=== PATIENT | female | born 1955 | race Caucasian/White ===

== ENCOUNTER → 2016-12-20 | Outpatient (CLI) | payer BC | LOC: FIMAGING 16:21 | PROVIDERS: ATTEND Family Medicine | DX: Z12.31 Encounter for screening mammogram for malignant neoplasm of breast (principal) | CPT/HCPCS: G0202 ==

== ENCOUNTER 2019-02-03 22:02 | Observation (INO) | payer BC ==
--- NOTE | 2019-02-03 22:44 | EDPHY ---
H & P Stated Complaint: Dx w/bronchitis monday, cough, not sleeping, "getting worse" Time Seen by Provider: 02/03/19 22:44 HPI/ROS: HPI CHIEF COMPLAINT: Worsening cough. HISTORY OF PRESENT ILLNESS: 64-year-old female, otherwise healthy presents emergency room stating her cough is getting worse and that she is unable to sleep for the past 3 days. She reports to me that she flew back from [place] on Monday of last week. She started getting sick on Monday with cough, she went saw primary care doctor was diagnosed bronchitis she was given Sudafed, cough medicine with codeine, albuterol inhaler. However she reports she has been unable to sleep for the past 3 days. States her cough is keeping her up. Past Medical History: Denies significant medical history Past Surgical History: Denies significant recent surgical history Social History: Denies drugs alcohol tobacco. Family History: Noncontributory ROS REVIEW OF SYSTEMS: 10 Systems were reviewed and negative with the exception of the elements mentioned in the history of present illness. Exam Constitutional nontoxic no acute distress triage nursing summary reviewed, vital signs reviewed, awake/alert. Vital signs stable. Eyes normal conjunctivae and sclera, EOMI, PERRLA. HENT normal inspection, atraumatic, moist mucus membranes, no epistaxis, neck supple/ no meningismus, no raccoon eyes. Respiratory bronchitic sounding cough on exam, clear to auscultation bilaterally, normal breath sounds, no respiratory distress. Cardiovascular rate normal, regular rhythm, no murmur, no edema, distal pulses normal. Gastrointestinal soft, non-tender, no rebound, no guarding, normal bowel sounds, no distension, no pulsatile mass. Genitourinary no CVA tenderness. Musculoskeletal no midline vertebral tenderness, full range of motion, no calf swelling, no tenderness of extremities, no meningismus, good pulses, neurovascularly intact. Skin pink, warm, & dry, no rash, skin atraumatic. Neurologic awake, alert and oriented x 3, AAOx3, moves all 4 extremities equally, motor intact, sensory intact, CN II-XII intact, normal cerebellar, normal vision, normal speech. Psychiatric normal mood/affect. Heme/Lymph/Immune no lymphadenopathy. Differential Diagnosis: Includes but is not limited to in a particular order bronchitis, viral syndrome, URI, viral pneumonia, bacterial pneumonia Medical Decision Making: Plan for this patient IV establishment IV fluid bolus , DuoNeb breathing treatment, two view chest x-ray, basic labs re-evaluate. Re-evaluation: 12:01 a.m. D-dimer is positive in the setting that she flew from she PN and short of breath. Plan for CT angiogram of the chest. I discussed the results of her lab work with her and discussed that given she has a positive D-dimer, shortness of breath, cough, recent long flight plan will be for CT angiogram of the chest she is agreeable this plan. CT angiogram of the chest obtained due to positive D-dimer and cough and shortness of breath. This shows no PE. However this does show patchy areas of poorly defined nodular ground-glass opacification lower lungs bilaterally with more consolidation anterior inferior left lower lobe and lingula. Consistent with multifocal pneumonia. Blood cultures will be obtained IV antibiotics be given IV Rocephin and IV Azithro Patient be admitted the hospitalist service. 0215AM: patient agrees for admission Dr. Edmondson Consulted. Source: Patient - Personal History Current Tetanus Diphtheria and Acellular Pertussis (TDAP): Yes - Medical/Surgical History Hx Asthma: No Hx Chronic Respiratory Disease: No Hx Diabetes: No Hx Cardiac Disease: No Hx Renal Disease: No Hx Cirrhosis: No Hx Alcoholism: No Hx HIV/AIDS: No Hx Splenectomy or Spleen Trauma: No Other PMH: Lt ACL - Social History Smoking Status: Never smoked Constitutional: Initial Vital Signs Temperature (C) 37.1 C 02/03/19 22:08 Heart Rate 70 02/03/19 22:08 Respiratory Rate 19 02/03/19 22:08 Blood Pressure 109/56 L 02/03/19 22:08 O2 Sat (%) 93 02/03/19 22:08 O2 Delivery Mode Room Air Allergies/Adverse Reactions: No Known Allergies Allergy (Unverified 02/03/19 22:11) Home Medications: Medication Instructions Recorded Acetaminophen [Tylenol 325mg (*)] 650 mg PO Q4HRS PRN tab 02/04/19 Albuterol [Ventolin Hfa Inhaler] 2 puffs IH Q4 PRN 02/04/19 Amoxicillin/Clavulanate Pot 875 mg PO BID #10 tab 02/04/19 [Augmentin 875 MG TAB (*)] Ascorbic Acid [Vitamin C 500 mg 1,000 mg PO DAILY 02/04/19 (*)] Aspirin [Aspirin 325 mg (*)] 650 mg PO Q6 PRN 02/04/19 Azithromycin [Zithromax] 250 mg PO DAILY #4 tab 02/04/19 Cholecalciferol Vit D3 [Vitamin D3 2,000 units PO DAILY 02/04/19 2000 units tab (OTC)] Ibuprofen [Motrin (*)] 400 mg PO Q4HRS PRN tab 02/04/19 Pseudoephedrine HCl 120 mg PO DAILY PRN 02/04/19 [Pseudoephedrine ER] Triamcinolone Acetonide [Nasacort] 1 spray EACHNARE DAILY PRN 02/04/19 Medical Decision Making - Data Points Laboratory Results: Laboratory Results 02/03/19 23:15 02/03/19 23:15 Microbiology Results: MICROBIOLOGY 02/04/19 00:52 Nasal, Sinus - Swab Respiratory Panel (PCR) - Final No Organism Detected By Pcr Medications Given: Discontinued Medications Hydrocodone Bitart/Acetaminophen (Secretary 10/325) 1 tab PO EDNOW ONE Stop: 02/03/19 23:52 Last Admin: 02/04/19 00:09 Dose: Not Given Hydrocodone Bitart/Acetaminophen (Secretary 5/325) 2 tab PO EDNOW ONE Stop: 02/04/19 00:10 Last Admin: 02/04/19 00:26 Dose: 2 tab Albuterol/Ipratropium (Duoneb) 3 ml IH EDNOW ONE Stop: 02/03/19 22:58 Last Admin: 02/03/19 23:17 Dose: 3 ml Guaifenesin/Codeine Phosphate (Robitussin Ac) 10 ml PO Q6HRS PRN PRN Reason: Cough, Moderate Stop: 08/03/19 02:46 Last Admin: 02/04/19 12:04 Dose: 10 ml Sodium Chloride (Ns) 1,000 mls @ 0 mls/hr IV ONCE ONE; Wide Open PRN Reason: Protocol Stop: 02/03/19 22:58 Last Admin: 02/03/19 23:13 Dose: 1,000 mls Sodium Chloride (Ns) 1,000 mls @ 0 mls/hr IV ONCE ONE PRN Reason: Wide Open Stop: 02/03/19 23:33 Last Admin: 02/03/19 23:43 Dose: 1,000 mls Azithromycin 500 mg/ Sodium (Chloride) 255 mls @ 255 mls/hr IV EDNOW ONE PRN Reason: Protocol Stop: 02/04/19 03:00 Last Admin: 02/04/19 03:51 Dose: 255 mls Ceftriaxone Sodium 2 gm/ (Sodium Chloride) 50 mls @ 100 mls/hr IV EDNOW ONE PRN Reason: Protocol Stop: 02/04/19 02:30 Last Admin: 02/04/19 02:55 Dose: 50 mls Prednisone (Prednisone) 60 mg PO EDNOW ONE Stop: 02/03/19 23:52 Last Admin: 02/04/19 00:26 Dose: 60 mg Departure - Departure Disposition: [facility] Inpatient Acute Clinical Impression: Pneumonia Qualifiers: Pneumonia type: due to unspecified organism Laterality: bilateral Lung location : unspecified part of lung Qualified Code(s): J18.9 - Pneumonia, unspecified organism Condition: Good
[2019-02-03] MEDS ORDERED: NS 1,000 ML IV ONE ×2 (22:57→23:32)
[2019-02-03] MEDS ORDERED: IPRATROPIUM/ALBUTEROL 3 ML DEYVIAL IH ONE (22:57)
[2019-02-03 23:25] LABS: PLATELET COUNT 172 10^3/uL (150-400)
[2019-02-03] MEDS ORDERED: HYDROCODONE/APAP 10/325 TAB PO ONE (23:51)
[2019-02-03] MEDS ORDERED: predniSONE 20 MG TAB PO ONE (23:51)
[2019-02-04] MEDS ORDERED: HYDROCODONE/APAP 5/325 TAB PO ONE (00:09)
[2019-02-04] MEDS ORDERED: IOPAMIDOL (ISOVUE 370) 100 ML BTL IV ONE (00:17)
[2019-02-04] MEDS ORDERED: AZITHROMYCIN IV 500 MG in NS 250 ML IV ONE (02:01)
[2019-02-04] MEDS ORDERED: ONDANSETRON 4 MG/2 ML VIAL IVP PRN (02:44)
[2019-02-04] MEDS ORDERED: HYDROCODONE/APAP 5/325 TAB PO PRN (02:44)
[2019-02-04] MEDS ORDERED: ACETAMINOPHEN 325 MG TAB PO PRN (02:44)
[2019-02-04] MEDS ORDERED: LORazepam 0.5 MG TAB PO PRN (02:44)
[2019-02-04] MEDS ORDERED: IBUPROFEN 200 MG TAB PO PRN (02:44)
[2019-02-04] MEDS ORDERED: ONDANSETRON DISINTEGRATING 4 MG TAB PO PRN (02:44)
[2019-02-04] MEDS ORDERED: NS 1,000 ML IV SCH (02:45)
[2019-02-04] MEDS ORDERED: BENZONATATE 100 MG CAP PO PRN (06:10)
[2019-02-04] MEDS: guaiFENesin/CODEINE PHOS 10 ML UDCUP PO PRN ×2 (06:12→12:04)
--- NOTE | 2019-02-04 06:55 | GHP ---
[f rep st] HISTORY AND PHYSICAL DATE OF ADMISSION: 02/04/2019 SOURCE: Patient provides history, appears reliable. EMR was reviewed and case discussed with ED pro vider. CHIEF COMPLAINT: Cough and shortness of breath. HISTORY OF PRESENT ILLNESS: Very pleasant 64-year-old female who is otherwise healthy presents to [facility] emergency department today with complaints of a 5-day history of progressive cough and dyspnea. [facility] patient recently returned from a trip from [facility]. She reports that she developed some coughing typ e symptoms that were persistent. It is a nonproductive cough. She did initially have some complaints of fevers and chills. She had no known direct sick contacts but she states that [place] She was seen by her primary care provider and diagnosed with bronchitis. She was given alb uterol inhaler and taking [id number]. The patient with progressive worsening cough. She has been unable to sleep for the past 3 days. She had increasing dyspnea and presented to the emergency department for further evaluation. REVIEW OF SYSTEMS: Ten systems reviewed, negative as noted above. ALLERGIES: No known drug allergies. HOME MEDICATIONS: None chronically. p.r.n. as noted above. PAST MEDICAL HISTORY: The patient reports she is overall healthy. PAST SURGICAL HISTORY: ACL repair. FAMILY HISTORY: Mother with history of lung cancer as well as history of smoking. Father d eceased related to alcohol abuse. SOCIAL HISTORY: Patient is , lives with her . Denies any tobacco, drugs, or alcohol u se. COR STATUS: Per patient her advance directive is DNR. PHYSICAL EXAMINATION: VITAL SIGNS: Upon arrival to the emergency department, blood pressure is 109/ 56, heart rate 70, respiratory rate 19, O2 saturation 93% on room air, temperature of 37.1. Vitals cu rrently available blood pressure is 106/57, heart rate 62, respiratory rate 16, O2 saturation 96% on room air, temperature 36.5. GENERAL: No acute distress. Very pleasant adult female is resting quie tly in bed. She does begin to cough increasingly during the interview, nonproductive. HEAD: Normoc ephalic, atraumatic. EYES: Extraocular muscles are grossly intact. Pupils equal, round, symmetric with decreased reactivity to light bilaterally, but symmetric. No scleral icterus or conjunctival in jection. ENT: Mucous membranes appear moist. Minimal oropharyngeal erythema. No exudates. NECK: Supple, trachea midline. CV: Regular rate and rhythm. No murmurs, rubs, or gallops appreciated. RE SPIRATORY: Diminished bibasilarly, left greater than the right. No crackles, wheezing, or rhonchi. Bronchietic cough. ABDOMEN: Positive bowel sounds. Soft, nontender to palpation. No guarding or m asses appreciated. : No Aguilar. No suprapubic tenderness to palpation. MUSCULOSKELETAL: Strength grossly intact. Patient moves all extremities. Ambulates independently. NEURO: Grossly nonfocal. M oves all extremities. No facial drooping. PSYCH: Thought process, content, questions appropriate. P atient is pleasant and cooperative. LABORATORY STUDIES: WBC 7.04, H and H is 12.5 and 36.8, MCV it is 92.4, platelet count is 172, monoc ytes 23.6%, no bands. D-dimer is 1.22. Sodium is 131, potassium 3.7, chloride 97, CO2 24, anion gap 10, BUN 6, creatinine 0.6. GFR greater than 60, glucose is 122, calcium is 8.5. Blood cultures x2 p ending, respiratory PCR pending. CTA of the chest negative for PE. Preliminary report reviewed, significant for patchy areas poorly d efined nodular ground-glass opacity in the lower lungs bilaterally with more erasto consolidation in t he anterior inferior left lower lobe and lingula. Findings most consistent with multifocal infectiou s pneumonitis or pneumonia. 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 ASSESSMENT AND PLAN: Westley 64-year-old female with no significant past medical history, presents with complaints of 5-day history of worsening cough and dyspnea. 1. Multifocal pneumonia. The patient has been started on azithromycin Rocephin which we will contin ue at this time. Supportive care for her cough with antitussives. The patient did receive a dose of prednisone in the emergency department. She has no previous history of asthma. No wheezing. Hold off on additional steroids at this time. 2. Dyspnea. ED provider reported O2 saturation lowest of 90% on room air. Exertional pulse ox befo re discharge. 3. Anemia, mild normocytic. Additional followup with primary care provider. 4. Hyponatremia likely secondary to hypovolemia in setting of acute illness. Patient status post no rmal saline in the emergency department. Monitor BMP. 5. Hyperglycemia, mildly elevated blood sugar. This is nonfasting lab testing. No previous history of diabetes. Additional follow up on outpatient basis. 6. Fluid, electrolyte, nutrition, IV fluids. Patient tolerating p.o. intake well. Transition to or al hydration. 7. Electrolytes adequate, replace if needed. Diet as tolerated. 8. Prophylaxis. SCDs. Anticipate short hospital stay. Encourage mobilization. Hold off on antico agulation. 9. COR status. Patient reports her advance directives are listed as DNR/DNI. 10. Disposition: The patient admitted to observation status on the med surg floor. Anticipate less than 48 hour stay. /[id number]/MODL
[2019-02-04 08:17] VITALS: BP 82/36
[2019-02-04 09:05] LABS: PLATELET COUNT 172 10^3/uL (150-400)
[2019-02-04] MEDS ORDERED: ASPIRIN 325 MG TAB PO PRN (10:38)
[2019-02-04] MEDS ORDERED: PSEUDOEPHEDRINE HCL 120 MG EXT REL TAB PO PRN (10:38)
[2019-02-04] MEDS ORDERED: FLUTICASONE NASAL 120 SPRAYS/16 GM MDI EACHNARE PRN (10:45)
[2019-02-04] MEDS ORDERED: ALBUTEROL 60 PUFFS/8 GM MDI IH PRN (10:45)
--- NOTE | 2019-02-04 11:12 | ASDISCHSUM ---
Discharge Information Plan Status:Home with No Needs Medically Cleared to Leave:02/04/2019 Discharge Date:02/04/2019 CM D/C Disposition:Home, Routine, Self-Care ADT D/C Disposition:Home, Routine, Self-Care Projected Discharge Date:02/04/2019 Transportation at D/C:Family Discharge Delay Reason: Follow-Up Date:02/04/2019 Discharge Slot: Final Diagnosis:pneumonia Placement Information Patient Contact Information Contact Name:DREW Relationship: Address:[address] Phone: City:[place] Alternate Phone: State/Zip Code:[place] [address] Email: Financial Information Financial Class:BCOP Primary Plan Desc: OUT OF STATE [facility] Primary Plan Number:[id number] Secondary Plan Desc: Secondary Plan Number: Assessment Information Case Management Discharge Plan Note Case Management Discharge Discharge Order Complete? Answers: Yes Patient to Obtain Answers: via Family Medications Transportation Arranged Answers: Family/Friends Transport will Pick (Date 02/04/2019 12:00 AM & Time) Family Notified Answers: Yes Notes: by patient Discharge Comments Notes: CM spoke with pt and RN in the room and with hospitalist. Pt to discharge independently with support from All parties agree this is an apprpropriate plan. No further CM needs noted at this time. Date Signed: 02/04/2019 11:11 AM Electronically Signed By:Perla Anderson. RN Intervention Information
--- NOTE | 2019-02-04 14:26 | GDS ---
[f rep st] DISCHARGE SUMMARY DISCHARGE DIAGNOSES: 1. Multifactorial pneumonia. 2. Dyspnea. 3. Normocytic anemia. 4. Hyponatremia. 5. Hyperglycemia. STUDIES AND PROCEDURES DONE: CT angio of the chest. PHYSICAL EXAM: GENERAL: The patient is alert. VITAL SIGNS: Afebrile at 37.1 , pulse 61, respiratory rate 17, blood pressure is 82/36. She is saturating 90 % on room air. I have seen and evaluated the patient on the day of discharge. HOSPITAL COURSE: The patient is a 64-year-old active female who presents to the emergency room with complaints of shortness of breath. She was evaluated and diagnosed with: 1. Multifactorial pneumonia. The patient was started on azithromycin as well as Rocephin during her hospital course.She has responded well and her symptoms have significantly improved. She is eager to be discharged home. Due to the potential side effects associated with Levaquin the patient will continue on Augmentin and azithromycin in the outpatient setting. Prescriptions have been provided. 2. Dyspnea. This has resolved. The patient is saturating appropriately on room air. 3. Normocytic anemia. She will follow up with her primary care physician. 4. Hyponatremia. This is in the setting of mild hypovolemia, does appear to be stable. 5. Hyperglycemia. This is likely an acute reactive response secondary to the patient's acute infection. DISPOSITION: She will be discharged home independently. I have reviewed her antibiotic course with her. FOLLOWUP: Will be with her primary care physician this week. Blood cultures are pending at the time of disposition. DISCHARGE MEDICATIONS: Please refer to EMR form. I have provided the patient's prescriptions for Augmentin 875mg BID as well as azithromycin 250 mg daily. I have not discontinued the patient's previously prescribed home medications. /[id number]/MODL MTDD
[2019-02-05] MEDS ORDERED: AZITHROMYCIN IV 500 MG in NS 250 ML IV SCH (02:00)
[2019-02-05] MEDS ORDERED: ASCORBIC ACID 500 MG TAB PO SCH (09:00)
[2019-02-05] MEDS ORDERED: CHOLECALCIFEROL VIT D3 2,000 UNITS TAB/CAP PO SCH (09:00)
== END 2019-02-04 12:25 | disposition home or self-care (01) ==
LOC: F3N 02-04 04:41
PROVIDERS: ADMIT Family Medicine; ATTEND Student in an Organized Health Care Education/Training Program
DX: J18.9 Pneumonia, unspecified organism (principal); R06.00 Dyspnea, unspecified; D64.9 Anemia, unspecified; E87.1 Hypo-osmolality and hyponatremia; R73.9 Hyperglycemia, unspecified; E86.9 Volume depletion, unspecified
CPT/HCPCS: 71275; 96361; 96365; 96367; 99285; G0378; J0456; J0696; J7512; Q9967